=== PATIENT | female | born 1970 | race Caucasian/White ===

== ENCOUNTER 2018-04-13 23:31 | Emergency (ER) | payer MEDICAID ==
[2018-04-14] MEDS: TETRACAINE 0.5% 4 ML OPH RIGHT EYE (02:08)
[2018-04-14] MEDS: FLUORESCEIN STRIP RIGHT EYE (02:08)
== END 2018-04-14 02:51 | disposition home or self-care (01) ==
LOC: FTE 23:31
DX: S05.01XA Injury of conjunctiva and corneal abrasion without foreign body, right eye, initial encounter (principal); X58.XXXA Exposure to other specified factors, initial encounter; Y92.9 Unspecified place or not applicable
CPT/HCPCS: 99283; Z7502

== ENCOUNTER 2018-05-25 09:40 | Emergency (ER) | payer SELFPAY, MEDICAID ==
[2018-05-25 11:49] LABS: URINE BLOOD (Dip) POC Negative (NEGATIVE); URINE GLUCOSE (Dip) POC Negative (NEGATIVE); URINE KETONES (Dip) POC Negative (NEGATIVE); URINE LEUKOCYTE EST (Dip) POC Negative (NEGATIVE); URINE NITRITE (Dip) POC Negative (NEGATIVE); URINE TOTAL PROTEIN POC Trace (NEGATIVE)
[2018-05-25] MEDS: KETOROLAC 30 MG INJ IM (12:01)
== END 2018-05-25 13:14 | disposition home or self-care (01) ==
LOC: FTE 09:40
DX: M54.42 Lumbago with sciatica, left side (principal); Z79.84 Long term (current) use of oral hypoglycemic drugs
CPT/HCPCS: 72100; 81003; 81025; 96372; 99284-25